=== PATIENT | female | born 1995 | race Caucasian/White ===

== ENCOUNTER 2019-08-15 03:42 | Emergency (ER) | payer OTHER ==
[2019-08-15] MEDS ORDERED: AMOXicillin 250 MG CAP ONE ×2 (04:30)
[2019-08-15] MEDS ORDERED: Acetaminophen 500 MG TAB ONE (04:30)
== END 2019-08-15 04:38 | disposition home or self-care (01) ==
LOC: MADERS 03:42
DX: H65.93 Unspecified nonsuppurative otitis media, bilateral (principal); F17.210 Nicotine dependence, cigarettes, uncomplicated
CPT/HCPCS: 99282